=== PATIENT | male | born 1980 | race Two or more races ===

== ENCOUNTER 2019-01-19 09:07 | Emergency (ER) | payer OTHER ==
[~2019-01-19] VITALS: Ht 177.8 cm; Wt 104.0 kg
[2019-01-19] MEDS ORDERED: ALBUTEROL INHALER (10:08)
--- NOTE | 2019-01-19 10:11 | NUR ---
PT TO ED AFTER ALTERCATION WTIH PATIENT AT WORK TODAY. PT STATES WAS "WRESTLING" WITH A PT AT 0615 THIS AM AND HEARD A POP IN LEFT KNEE. LEFT KNEE IS NOW EDEMATOUS AND PAINFUL, WORSE WITH MOVEMENT. CMS INTACT. PT CONNECTE TO MONITORS. HTN, VSS ON RA. EDMD ASSESSMENT COMPLETE AND ORDERS RECEIVED. NO NEEDS EXPRESSED AT THIS TIME. CALL LIGHT WITHIN REACH. AWAITING XR.
--- NOTE | 2019-01-19 10:32 | NUR ---
pt back from xr.
--- NOTE | 2019-01-19 10:50 | NUR ---
pt resting in room. vss. no needs expressed. call light within reach. all resutls back at this time. chart up for recheck.
--- NOTE | 2019-01-19 11:04 | NUR ---
NEW ORDERS RECEIVED FOR LLE CT.
--- NOTE | 2019-01-19 11:43 | NUR ---
pt resting in room. vss. no needs expressed. call light within reach. awaiting ct.
--- NOTE | 2019-01-19 11:53 | NUR ---
PT TO CT.
--- NOTE | 2019-01-19 12:14 | NUR ---
pt back from ct. vss.
--- NOTE | 2019-01-19 12:51 | NUR ---
DR LEHMAN SPOKE WITH DR FARFAN
--- NOTE | 2019-01-19 12:52 | NUR ---
pt resting in room. vss. no needs expressed. call light within reach. awaiting ortho consult.
--- NOTE | 2019-01-19 13:17 | NUR ---
tech to bs to place knee immobilizer and teach crutch use. plan to dc.
[2019-01-19 13:33] VITALS: BP 136/80
== END 2019-01-19 13:55 | disposition home or self-care (01) ==
LOC: ED 10:58
DX: S82.122A Displaced fracture of lateral condyle of left tibia, initial encounter for closed fracture (principal); X58.XXXA Exposure to other specified factors, initial encounter; Y93.89 Activity, other specified; Y92.89 Other specified places as the place of occurrence of the external cause; Y99.8 Other external cause status
CPT/HCPCS: 29505; 99284

== ENCOUNTER 2019-09-09 21:32 | Emergency (ER) | payer OTHER ==
[~2019-09-09] VITALS: Ht 177.8 cm; Wt 115.0 kg
[~2019-09-09 21:32] MED LIST: ALBUTEROL INHALER
--- NOTE | 2019-09-09 22:14 | NUR ---
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 PT STATED "HE DID SAY THAT AT THE HEAT OF THE MOMENT BUT DOES NOT FEEL THAT WAY NOW"
[2019-09-09 22:33] LABS: BASOPHILS # (AUTO) 0.03 x10^3/uL (0-0.1); BASOPHILS % (AUTO) 0 % (0-1); EOSINOPHILS # (AUTO) 0.34 x10^3/uL (0-0.4); EOSINOPHILS % (AUTO) 5 % (1-7); LYMPHOCYTES # (AUTO) 1.94 x10^3/uL (1-3.4); LYMPHOCYTES % (AUTO) 28 % (22-44); MD NO; MEAN CORPUSCULAR HEMOGLOBIN 34.1 pg (27.5-34.5); MEAN CORPUSCULAR HGB CONC 34.8 g/dL (33.2-36.2); MEAN PLATELET VOLUME 7.6 fL (7.4-10.4); MONOCYTES # (AUTO) 0.41 x10^3/uL (0.2-0.8); MONOCYTES % (AUTO) 6 % (2-9); NEUTROPHILS # (AUTO) 4.17 x10^3/uL (1.8-6.8); NEUTROPHILS % (AUTO) 61 % (42-75); PLATELET COUNT 198 x10^3/uL (130-400); RED CELL DISTRIBUTION WIDTH 12.4 % (9.4-14.8)
[2019-09-09 22:42] LABS: MICROSCOPIC AUTO
[2019-09-09 22:46] LABS: ALBUMIN 3.1 g/dL (3.4-5.0); ANION GAP 11 mmol/L (5-15); CALCIUM 7.8 mg/dL (8.5-10.1); CHLORIDE 111 mmol/L (98-107); CREATININE 1.09 mg/dL (0.7-1.3); SALICYLATE LEVEL 1.8 mg/dL (2.8-20.0)
[2019-09-09 22:50] LABS: AMPHETAMINE SCREEN, URINE Negative (Negative); BARBITURATE SCREEN, URINE Negative (Negative); BENZODIAZEPINE SCREEN, URINE Negative (Negative); CANNABINOID SCREEN, URINE Negative (Negative); COCAINE SCREEN, URINE Negative (Negative); METHADONE SCREEN, URINE Negative (Negative); OPIATE SCREEN, URINE Negative (Negative)
--- NOTE | 2019-09-10 00:02 | NUR ---
PT RESTING IN HOSPITAL BED, PT ROOM IS SI SECURE WITH SITTER AT PT DOOR. PT HAS NO WANTS OR NEEDS AT THIS TIME. SHOWROOM SALES ASSISTANT WILL CONTINUE TO MONITOR PT
--- NOTE | 2019-09-10 01:06 | NUR ---
PT RESTING IN HOSPITAL BED, PT ROOM IS SI SECURE WITH SITTER AT PT DOOR. PT HAS NO WANTS OR NEEDS AT THIS TIME. ANALYTICS ARCHITECT WILL CONTINUE TO MONITOR PT
--- NOTE | 2019-09-10 01:57 | NUR ---
BREAK RN: PT. RESTING ON GURNEY WITH EYES CLOSED. EVEN, NON-LABORED RESPIRATIONS VISIBLE. ROOM IS SECURED AND SITTER IN DIRECT LINE OF SIGHT. NO DISTRESS NOTED.
--- NOTE | 2019-09-10 02:39 | NUR ---
PT RESTING IN HOSPITAL BED, PT ROOM IS SI SECURE WITH SITTER AT PT DOOR. PT HAS NO WANTS OR NEEDS AT THIS TIME. ENDLESS TRACK VEHICLE SUPERVISOR WILL CONTINUE TO MONITOR PT
--- NOTE | 2019-09-10 05:29 | NUR ---
PT SLEEPING IN HOSPITAL BED, PT ROOM IS SI SECURE WITH SITTER AT PT DOOR. PT HAS NO WANTS OR NEEDS AT THIS TIME. ELECTRONIC NEWS GATHERING [place] PERSON WILL CONTINUE TO MONITOR PT
--- NOTE | 2019-09-10 06:05 | NUR ---
TP RN: CALLED TO [facility] AND SPOKE WITH ERICH MURPHY; INSURANCE NOT ACCEPTED BY [facility]. PACKET FAXED TO [facility], [facility], [facility], AND [facility]. AWAITING CONFIRMATION.
--- NOTE | 2019-09-10 07:00 | NUR ---
RECEIVED REPORT FROM SANIYA. PT SLEEPING ON HOSPITAL BED, NAD WITH EQUAL CHEST RISE/FALL, NO NEEDS AT THIS TIME, PT REMAINS IN SAFE ENVIRONMENT, SITTER IN VIEW.
--- NOTE | 2019-09-10 07:10 | NUR ---
REPORT GIVEN TO NIMA ([facility]), WILL CALL BACK WITH ACCEPTING TRANSFER TIME.
[2019-09-10 07:33] VITALS: BP 197/136
--- NOTE | 2019-09-10 08:06 | NUR ---
BREAKFAST TRAY GIVEN
== END 2019-09-10 08:36 ==
LOC: ED 09-10 01:13
DX: E11.65 Type 2 diabetes mellitus with hyperglycemia (principal); R45.851 Suicidal ideations; F32.9 Major depressive disorder, single episode, unspecified; F10.120 Alcohol abuse with intoxication, uncomplicated; Y90.0 Blood alcohol level of less than 20 mg/100 ml
CPT/HCPCS: 36415; 80048; 80307; 81001; 82040; 85025; 99285

== ENCOUNTER 2019-09-10 10:49 | Emergency (ER) | payer OTHER ==
[~2019-09-10] VITALS: Ht 177.8 cm; Wt 97.4 kg
--- NOTE | 2019-09-10 11:02 | NUR ---
BIB EMS [facility]. PT WAS TRANSFERED FROM [facility] TO [facility] FOR PSYCH TREATMENT. WHILE AT [facility] THEY RPT ELEVATED SBP HIGH 190'S. PT DENEIS COKER, CP, DIZZINESS OR ANY VISUAL ISSUES. BP ON ARRIVAL 179/87. PT STATES THAT HE DID FEEL MORE ANXIETY WHILE GOING THROUGH THE INTAKE PROCESS AT [facility]. PER EMS [facility] IS HOLDING ROOM FOR PT TO RTN ONCE HTN IS ADDRESSED.
--- NOTE | 2019-09-10 11:05 | NUR ---
SITTER AT DOORWAY WITH PT IN VIEW. ROOM IS NOT SECURED PT IS ON MONITORS AT THIS TIME.
--- NOTE | 2019-09-10 11:06 | NUR ---
CHENAR RPT TO ERICH HERNADEZ
[2019-09-10] MEDS ORDERED: LOSARTAN 50MG TABLET PO ONE (11:30)
--- NOTE | 2019-09-10 12:04 | NUR ---
TASK RN: REPORT OF PT FROM RNSATYA, AND ASSUMING TEMPORARY CARE OF PT AT THIS TIME. PT RESTING COMFORTABLY IN [facility]. VSS AND UPDATED IN EMR AT THIS TIME. PT DENIES ANY OTHER NEEDS. SITTER OUTSIDE OF PT ROOM WITH DIRECT OBSERVATION OF PT AT THIS TIME.
--- NOTE | 2019-09-10 13:05 | NUR ---
PT UPRIGHT ON GURNEY AWAKE, CAML & COMFORTABLE, WATCHING TV, RESPONDS APPROP TO STAFF, NAD, COMFORT MEASURES PROVIDED, CALL LIGHT WITHIN REACH.
--- NOTE | 2019-09-10 13:58 | NUR ---
PT RESTING ON GURNEY W/ CALL LIGHT IN REACH. SITTER OUTSIDE ROOM FOR SAFETY. PT HYPERTENSIVE, OTHER VS WDL. RESP EVEN AND UNLABORED, NADN.
--- NOTE | 2019-09-10 14:33 | NUR ---
CARLOS FROM [facility] ACCEPTING MD WILL APPROVE TRANSFER IF [facility] WILL FAX REPORT STATING PT IS NO LONGER IN HYPERTENSIVE CRISIS, CURRENT RX FOR HTN, & IS MEDICALLY CLEARED- DR DODSON NOTIFIED.
[2019-09-10 15:04] VITALS: BP 179/95
--- NOTE | 2019-09-10 15:04 | NUR ---
PT REMAINS UPRIGHT ON [place] RANCH AWAKE, CALM & COMFORTABLE, WATCHING TV, RESPONDS APPROP TO STAFF, NAD, COMFORT MEASURES PROVIDED, CALL LIGHT WITHIN REACH.
--- NOTE | 2019-09-10 17:09 | NUR ---
Patient given discharge instructions and they have confirmed that they understand the instructions. Patient ambulatory with steady gait. [facility] transport to [facility], report given to
== END 2019-09-10 17:10 ==
LOC: ED 12:17
DX: I10 Essential (primary) hypertension (principal); E11.9 Type 2 diabetes mellitus without complications; R94.31 Abnormal electrocardiogram [ECG] [EKG]
CPT/HCPCS: 93005; 99285